=== PATIENT | female | born 1990 | race Caucasian/White ===

== ENCOUNTER 2020-06-03 22:53 | Emergency (ER) | payer BC, OTHER ==
[2020-06-03] MEDS ORDERED: TETANUS & DIPHTHERIA TOX,ADULT 0.5 ML VIAL ONE (23:45)
[2020-06-03] MEDS ORDERED: LIDOCAINE 1% MPF 5 ML VIAL ONE (23:48)
[2020-06-03] MEDS ORDERED: LIDOCAINE 1% MPF 30 ML VIAL ONE (23:50)
--- NOTE | 2020-06-04 00:43 | ER ---
Nurse's Notes [facility] Name: Marilu Ayala Age: 29 yrs Sex: Female : 1990 Arrival Date: 06/03/2020 Time: 23:00 Bed 7 Private MD: Diagnosis: Knee Laceration Presentation: 06/03 23:04 Chief complaint: Patient states: "I rolled my left ankle and scraped up my right knee jd3 pretty good.". Coronavirus screen: At this time, the client does not indicate any symptoms associated with coronavirus-19. Ebola Screen: Patient negative for fever greater than or equal to 101.5 degrees Fahrenheit, and additional compatible Ebola Virus Disease symptoms. Initial Sepsis Screen: Does the patient meet any 2 criteria? No. Patient's initial sepsis screen is negative. Does the patient have a suspected source of infection? No. Patient's initial sepsis screen is negative. Risk Assessment: Do you want to hurt yourself or someone else? Patient reports no desire to harm self or others. Onset of symptoms was June 03, 2020. 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 - Social history:: Smoking status: Patient denies any tobacco usage or history of. Screenin:48 Abuse screen: Denies threats or abuse. Denies injuries from another. Nutritional rv screening: No deficits noted. Tuberculosis screening: No symptoms or risk factors identified. Fall Risk None identified. Assessment: 23:41 General: Appears comfortable, Behavior is calm, cooperative. Pain: Complains of pain in rv right knee. Neuro: Level of Consciousness is awake, alert, obeys commands, Oriented to person, place, time, situation. Cardiovascular: Patient's skin is warm and dry. Respiratory: Airway is patent. Derm:. Injury Description: Laceration sustained to right knee is full thickness, 2.6 to 7.5 cm long, not bleeding. Vital Signs: 23:07 BP 121 / 76; Pulse 60; Resp 15 S; Temp 98.3(O); Pulse Ox 100% on R/A; Weight 113.4 kg jd3 (R); Height 5 ft. 7 in. (170.18 cm) (R); Pain 3/10; 06/04 00:51 BP 118 / 78; Pulse 66; Resp 15; Temp 98; Pulse Ox 99% ; rv 06/03 23:07 Body Mass Index 39.16 (113.40 kg, 170.18 cm) jd3 ED Course: 06/03 23:00 Patient arrived in ED. bp1 23:01 Faustino Briones PA is PHCP. jmm 23:01 Vel Pedraza MD is Attending Physician. jmm 23:06 Triage completed. jd3 23:07 Arm band placed on. jd3 23:19 Doron Bradshaw, SKY is Primary Nurse. rv 23:48 Patient has correct armband on for positive identification. Pulse ox on. NIBP on. rv 23:48 Patient did not have IV access during this emergency room visit. rv 06/04 00:23 Knee Right 3 View XRAY In Process Unspecified. EDMS 00:30 Assist provider with laceration repair on right knee that was between 2.6 to 7.5 cm rv using sutures. Set up tray. Performed by Faustino MADRID Dressed with 4X4s, Patient tolerated well. 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 Exp: rv 12/02/2022. Lot #: [id number]. } Route: IM; Site: left deltoid; 06/04 00:50 Follow up: Response: No adverse reaction rv 00:30 Drug: Lidocaine (1 %) 30 ml {Note: used by JULIUS Briones.} Volume: 5 ml; Route: rv Infiltration; 00:50 Follow up: Response: No adverse reaction rv Outcome: 00:43 Discharge ordered by . [facility] [place] 00:51 Discharged to home ambulatory. rv 00:51 Condition: improved 00:51 Discharge instructions given to patient, Instructed on discharge instructions, follow up and referral plans. medication usage, wound care, Demonstrated understanding of instructions, follow-up care, medications, wound care, Prescriptions given X 1. 00:52 Patient left the ED. rv Signatures: Dispatcher [employer] EDMS Faustino Briones PA PA jmm Davies, Jonathon, RN RN jd3 Doron Bradshaw RN RN rv Natalie Irwin Corrections: (The following items were deleted from the chart) 06/03 23:08 23:07 Pulse 60bpm; Resp 15bpm; Spontaneous; Pulse Ox 100% RA; Temp 98.3F Oral; 113.4 kg jd3 Reported; Height 5 ft. 7 in. Reported; BMI: 39.1; Pain 3/10; jd3
--- NOTE | 2020-06-04 00:43 | EDPHYS ---
Physician Documentation [facility] Name: Marilu Ayala Age: 29 yrs Sex: Female : 1990 Arrival Date: 06/03/2020 Time: 23:00 Bed 7 Private MD: ED Physician Vel Pedraza HPI: 06/03 23:12 This 29 yrs old Female presents to ER via Ambulatory with complaints of Knee jmm Injury. 23:12 The patient presents with an injury, pain. Onset: The symptoms/episode began/occurred jmm acutely, just prior to arrival. Modifying factors: The symptoms are alleviated by nothing. the symptoms are aggravated by nothing. This is a 29 year old female with no chronic medical conditions that presents to the ED with complaints of right knee pain and left ankle pain after accidently falling over rocks. Denies other injury. Patient is not utd on immunizations. . 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 - Social history:: Smoking status: Patient denies any tobacco usage or history of. ROS: 23:12 Constitutional: Negative for fever, chills, and weight loss, Cardiovascular: Negative jmm for chest pain, palpitations, and edema, Respiratory: Negative for shortness of breath, cough, wheezing, and pleuritic chest pain. 23:12 MS/extremity: Positive for injury or acute deformity, laceration. 23:12 All other systems are negative. Exam: 23:12 Constitutional: This is a well developed, well nourished patient who is awake, alert, jmm and in no acute distress. Head/Face: atraumatic. Eyes: EOMI, no conjunctival erythema appreciated ENT: Moist Mucus Membranes Neck: Trachea midline, Supple Chest/axilla: Normal chest wall appearance and motion. Cardiovascular: Regular rate and rhythm. No edema appreciated Respiratory: Normal respirations, no respiratory distress appreciated Abdomen/GI: Non distended, soft Back: Normal ROM 23:12 Musculoskeletal/extremity: FROM noted to the right knee, injury does not appear to go into knee joint space, from appreciated to the left ankle, compartments are soft, pulses intact, NVI. 23:12 Skin: laceration noted to the right anterior knee, approx 6 cm flap. . 23:12 Neuro: Orientation: is normal, Mentation: is normal, Memory: is normal. 23:12 Psych: Behavior/mood is pleasant, cooperative. Vital Signs: 23:07 BP 121 / 76; Pulse 60; Resp 15 S; Temp 98.3(O); Pulse Ox 100% on R/A; Weight 113.4 kg jd3 (R); Height 5 ft. 7 in. (170.18 cm) (R); Pain 3/10; 06/04 00:51 BP 118 / 78; Pulse 66; Resp 15; Temp 98; Pulse Ox 99% ; rv 06/03 23:07 Body Mass Index 39.16 (113.40 kg, 170.18 cm) jd3 Laceration: 00:11 Wound Repair of 6cm ( 2.4in ) subcutaneous laceration to right knee. Distal [facility] neuro/vascular/tendon intact. Anesthesia: Local anesthetic administered with 5 mls of 1% lidocaine. Wound prep: Moderate cleansing with betadine by me, Wound irrigation by me, Copious irrigation. Skin closed with 12 4-0 Prolene using simple sutures and sterile technique. Patient tolerated well. MDM: 06/03 23:12 Patient medically screened. [facility] 06/04 00:38 Data reviewed: vital signs, nurses notes. Counseling: I had a detailed discussion with [facility] the patient and/or guardian regarding: the historical points, exam findings, and any diagnostic results supporting the discharge/admit diagnosis, radiology results, the need for outpatient follow up, to return to the emergency department if symptoms worsen or persist or if there are any questions or concerns that arise at home. ED course: Patient is alert and non toxic in appearance. Patient given wound infection return precautions. Patient understood and agrees with the plan of care. . 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 Exp: rv 12/02/2022. Lot #: [id number]. } Route: IM; Site: left deltoid; 06/04 00:50 Follow up: Response: No adverse reaction rv 00:30 Drug: Lidocaine (1 %) 30 ml {Note: used by PA. Anselmo} Volume: 5 ml; Route: rv Infiltration; 00:50 Follow up: Response: No adverse reaction rv Disposition: 01:09 Co-signature as Attending Physician, Vel Pedraza MD. rn Disposition: 06/04/20 00:43 Discharged to Home. Impression: Knee Laceration. - Condition is Stable. - Discharge Instructions: Laceration Care, Adult. - Prescriptions for Doxycycline Hyclate 100 mg Oral Tablet - take 1 tablet by ORAL route every 12 hours; 20 tablet. - Medication Reconciliation Form, Thank You Letter, Antibiotic Education, Prescription Opioid Use form. - Follow up: Private Physician; When: 7 - 10 days; Reason: Recheck today's complaints, Continuance of care, Staple/Suture removal, Re-evaluation by your physician. Signatures: Dispatcher [employer] EDCA Faustino Briones PA PA jmm Nieto, Roman, MD MD rn Davies, Jonathon, RN RN jd3 Vicente, Ronaldo, RN RN rv Corrections: (The following items were deleted from the chart) 00:24 06/03 23:13 Ankle Left 3 View+RAD.RAD.BRZ ordered. [facility] 06/04 00:52 00:43 06/04/2020 00:43 Discharged to Home. Impression: Knee Laceration. Condition is rv Stable. Forms are Medication Reconciliation Form, Thank You Letter, Antibiotic Education, Prescription Opioid Use. Follow up: Private Physician; When: 7 - 10 days; Reason: Recheck today's complaints, Continuance of care, Staple/Suture removal, Re-evaluation by your physician. katerin
--- NOTE | 2020-06-04 08:27 | RAD REPORT ---
EXAM DESCRIPTION: RAD - Knee Right 3 View - 06/04/2020 12:23 am CLINICAL HISTORY: Right knee pain status post injury FINDINGS: No fracture or dislocation is seen. Anterior soft tissue laceration
== END 2020-06-04 00:52 | disposition home or self-care (01) ==
LOC: ER 22:53
PROC: 0JQN0ZZ Repair Right Lower Leg Subcutaneous Tissue and Fascia, Open Approach (ICD-10-PCS; principal; 2020-06-04)
DX: S81.011A Laceration without foreign body, right knee, initial encounter (principal); M25.572 Pain in left ankle and joints of left foot; W26.8XXA Contact with other sharp object(s), not elsewhere classified, initial encounter; Y93.89 Activity, other specified; Y92.89 Other specified places as the place of occurrence of the external cause; Z23 Encounter for immunization
CPT/HCPCS: 90471; 90714; 99284